=== PATIENT | male | born 1975 | race Caucasian/White ===

== ENCOUNTER 2021-02-07 03:20 | Outpatient (CLI) | payer BC, SELFPAY ==
[2021-02-08 13:59] LABS: COVID-19 RT-PCR UVMMC Result Positive (Negative)
== END 2021-02-07 03:21 | disposition home or self-care (01) ==
PROVIDERS: PCP Family Medicine; Visit Provider Family Medicine
DX: Z20.822 Contact with and (suspected) exposure to COVID-19 (principal)
CPT/HCPCS: U0003

== ENCOUNTER 2021-03-17 06:27 | Day surgery (SDC) | payer BC, SELFPAY ==
--- NOTE | 2021-03-16 20:53 | HPE_ITS ---
Date of service: 03/17/21 Time of Service: 07:00 Assessment and Plan Assessment and plan (1) Screening for colon cancer: Status: Acute Assessment and plan: Plan:Colonscopy w/ MAC The patient will be scheduled by my office. The pt understands that they need to do a bowel prep and the importance of hydration during this. The patient understands there is a theoretical risk of renal failure. For healthy patients we use Gatorade/Miralax Prep. For anyone with renal concerns- GoLytely will be used. Plavix and coumadin will need to be held except in unusual circumstances. Patients in A. Fib do not need to be bridged with Lovenox or on CVA prophylaxis. A baby ASA can be continued but full dose ASA needs to be stopped for 10 days prior to the procedure. MAC is used for the colonoscopy. Colonoscopy does not require antibiotics prophylaxis. Risks: Informed consent is obtained for the procedural (explained in simple layman's terms that the pt and/or family could understand) explaining risks vs benefits and alternatives to the procedure and consequences if we do not do the procedure and need/rational for the procedure. Risks include but are not limited to: bleeding, infection, perforation of colon. This would necessitate emergency surgery to repair the damage w/ possible ostomy; and other associated complications w/ the required surgery. Also complications of anesthesia including aspiration, PA/CVA/. I discussed with the patient would they could expect during the procedure, post procedure and recovery time and risks. The patient understands that they need to have a ride home after the procedure. The patient was given all this information in writing and expressed understanding. (2) History of COVID-19: Status: Acute History of Present Illness Consults Consult date: 03/17/21 Narrative: pt presents for his first colonoscopy screening pre-op. His paternal GPa had CRC. He denies any changes in bowel habits including bloody or black tarry stools, abdominal pain, diarrhea or constipation. 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 He states at times they are bother some and become irritated. Sometimes they pop out. Denies bleeding from the hemorrhoids. He denies constitutional symptoms. Denies use of marijuana or any other recreational or illegal drugs. He denies chest pain, palpitations, dyspnea or dyspnea with exertion. He denies prior history or family history of adverse reactions or complications with anesthesia. The patient denies any history of stroke, PA, seizures, bleeding or clotting disorders. He denies having any implanted metal in his body. His CE had to be delayed b/c he had Covid. His respiratory status is better. He is not having any cough or fevers. no Cp or SOB. He completed his prep and the d/c is clear yellow. No nausea or abdominal pain He notes that he does have problems with hemorrhoids and will occasionally have bleeding and itching. We will also plan on doing a hemorrhoid banding if these are internal hemorrhoids risks include pain bleeding infection and recurrence damage to the sphincters. He also has a lump that he would like us to take a look today Review of Systems All systems reviewed & are unremarkable except as noted in HPI and below PFSH Medical History History of COVID-19 No pertinent past medical history Surgical History Hx of lumpectomy Social History Smoking/Tobacco Use Status: Current-Occasional Tobacco Type: smokeless tobacco Smokeless tobacco user: chewing tobacco Smoking risk assessment performed?: Yes Alcohol Intake: current Alcohol Intake frequency: 0-2 drinks per day Alcohol type: beer Details: Drinks 6 pack/day drinks more than 6 in a night a couple times per wk Substance use type: does not use Current gender identity: male Do you feel safe at home: Yes Do you feel safe in your relationship?: Yes Meds Allergies and Home Medications Allergies Allergy/AdvReac Type Severity Reaction Status Date / Time No Known Allergies Allergy Verified 03/17/21 06:54 Home Medications Medication Instructions Recorded Confirmed Type No Daily Meds 03/12/13 02/02/21 History bisacodyl 5 mg tablet,delayed 5 mg PO ONCE #4 tab 02/02/21 03/17/21 Rx release polyethylene glycol 3350 17 238 g PO ONCE #238 g 02/02/21 03/17/21 Rx gram/dose oral powder Exam Const General: cooperative, healthy appearing, comfortable, no acute distress, well developed and well groomed Nutritional Appearance: average body habitus and well nourished Orientation: alert, awake and oriented x3 [facility] Head: normal to inspection, normocephalic and atraumatic Ears: hearing grossly normal bilaterally and external ears normal General nose exam: external nose normal Face and sinus: normal facial exam and sinuses nontender Mouth: oral mucosae normal, lip normal, tongue normal and moist mucous membranes Teeth and gingiva: dentition normal Eyes General: appearance normal, both eyes and all related structures Conjunctivae: conjunctivae normal Sclera: sclerae normal Pupils: PERRL Neck Neck: normal visual inspection and full ROM Chest Chest: normal inspection of the chest Resp Effort & Inspection: normal respiratory effort, able to speak in complete sentences, no cough, no nasal flaring, not tachypneic and no use of accessory muscles Auscultation: clear to auscultation bilaterally, no rales, no rhonchi and no wheezes Cardio Jugular venous pressure: no JVD Rate: regular rate Rhythm: regular rhythm GI Inspection: normal to inspection, no edema and non-distended Palpation: soft, no masses, nontender and No ascites Auscultation: normal bowel sounds Skin General skin exam: no rashes or lesions noted Trauma: no lacerations or abrasions Neuro General: patient alert, patient oriented x3, oriented, gait normal, moves all extremities, no focal motor deficits and CN's II-XI intact bilaterally Cognition: normal cognition Speech: speech normal Gait: normal gait Motor: muscle tone normal throughout Extrem General: normal to inspection, full ROM and no clubbing, cyanosis or edema Psych Appearance: grossly normal and well kempt Mental Status: mental status grossly normal Speech and Movement: speech and movement normal Affect: normal affect COVID-19 Screening Have you, or household traveled for leisure in last 14 days?: No Had IN PERSON contact w/suspected or confirmed C-19 person: No
[2021-03-17 06:55] VITALS: BP 131/88; PULSE 67; RESP 16; TEMP 36.7; O2SAT 96
--- NOTE | 2021-03-17 07:04 | W.ANESPRE ---
General Info Date of Service Date Performed: 03/17/21 Height: 6 ft 1 in Weight: 100.6 kg Body Mass Index (BMI): 29.2 Surgical Procedure: Operation Date: 03/17/21 07:35 Proposed Procedures Side Surgeon estrellita Jaffe, Meds Allergies and Home Medications Allergies Allergy/AdvReac Type Severity Reaction Status Date / Time No Known Allergies Allergy Verified 03/17/21 06:54 Home Medication Medication Instructions Recorded No Daily Meds 03/12/13 bisacodyl 5 mg tablet,delayed 5 mg PO ONCE #4 tab 02/02/21 release polyethylene glycol 3350 17 238 g PO ONCE #238 g 02/02/21 gram/dose oral powder Current Visit Medications: Current Medications Generic Name Dose Route Start Last Admin Trade Name Freq PRN Reason Stop Dose Admin Ringer's Solution 1,000 mls @ 80 mls/hr 03/17/21 06:00 IV 04/15/21 23:59 INFUSION ELISABET IV Miscellaneous Supplies 1 each 03/17/21 06:00 Iv Access IV 04/15/21 23:59 DIRECTED ELISABET Sodium Chloride 0 ml 03/17/21 06:00 Normal Saline Flush 10 Ml Syr IV 04/15/21 23:59 PRN PRN Sodium Chloride 0 ml 03/17/21 06:00 Normal Saline 10 Ml Vial IJ 04/15/21 23:59 DIRECTED PRN Sterile Water 0 ml 03/17/21 06:00 Water,Injection,Sterile 10 Ml Vial IJ 04/15/21 23:59 DIRECTED PRN PFSH Active Problems Active Problems: Problem Status Onset Code Screening for colon cancer Z12.11 History of COVID-19 Z86.16 Medical History Medical History History of COVID-19 No pertinent past medical history Surgical History Surgical History Hx of lumpectomy Tobacco Smoking/Tobacco Use Status: Current-Occasional Tobacco Type: smokeless tobacco Smokeless tobacco user: chewing tobacco Alcohol Alcohol Intake: current Alcohol intake frequency: 0-2 drinks per day Alcohol type: beer Details: Drinks 6 pack/day drinks more than 6 in a night a couple times per wk Substance Use Substance use type: does not use Vital Signs and Lab Results Vital Signs Most Recent Vital Signs in EMR: Most Recent Vital Signs Temp Pulse Resp BP Pulse Ox 36.7 C 67 16 131/88 96 03/17/21 06:55 03/17/21 06:55 03/17/21 06:55 03/17/21 06:55 03/17/21 06:55 Lab Results Blood Type / Crossmatch: No Data to Display Complete Blood Count: No Data to Display Complete Metabolic Panel: No Data to Display Liver Function Panel: No Data to Display Coagulation Panel: No Data to Display Cardiac Panel: No Data to Display Arterial Blood Gas: No Data to Display Venous Blood Gas: No Data to Display Pancreas Panel: No Data to Display Thyroid Panel: No Data to Display Infectious Disease: Coronavirus (COVID-19)(PCR) Positive (Negative) A* 02/07/21 08:43 02/07/21 Blood Cultures: No Data to Display Toxicology Panel: No Data to Display Anesthesia Assessment and Plan Anesthesia History Personal History: No History of Anesthesia Complications Family History: No Family History of Anesthesia Complications Exercise Tolerance Exercise Tolerance: Metabolic Equivalents>4 Pertinent Negatives Pertinent Negatives: No Symptoms of GERD, No Major Cardiovascular Symptoms or Complaints, No Major Pulmonary Symptoms or Complaints and No History of CVA/TIA Cardiac & Pulmonary Exam Cardiac Exam: Normal S1/S2 Heart Sounds Pulmonary Exam: Clear Bilateral Breath Sounds Airway Exam Known Difficult Airway: No Mallampati Class: 1 Mouth Opening: Normal (> 3cm) Thyromental Distance: Greater than 3 cm Facial Hair: Full Patterson Neck Range of Motion: Full ROM Neck Circumference: Normal Teeth Condition: Normal Dentition ASA Classification ASA Score: ASA 2 ASA Emergency: No NPO Status NPO Status: NPO Clears >2 hours, Solids >8 hours Anesthesia Plan Anesthesia Technique: General Anesthesia Airway Planned: Natural Airway Monitors Used: Standard Monitors
[2021-03-17] MEDS: Lactated Ringers 1,000 ML 80 ML IV (07:05)
[2021-03-17 07:06] VITALS: BMI 29.2
--- NOTE | 2021-03-17 08:01 | BOWEL_PTH ---
PATIENT: Behzad Rizvi LOC: [facility] U#:[id number] AGE/SX: 46/M ROOM: RE03/17/[address]: Angeli Jaffe : 1975 BED: DIS: 03/17/2021 SPEC #: [id number] RECD: 03/17/21 12:43 STATUS: ROSA MARIA REQ #: [id number] AP: 03/17/21 08:[address]: Angeli Jaffe DEPT: Surgical Specimen RECD BY: Kristine Horan ENTERED: 03/17/21 12:44 SP TYPE: Bowel OTHR DR: Yemi Hardin MD Tissues: 1 - BIOPSY BOWEL Procedures: GROSS AND MICRO LEVEL 4 Comments: [id number]
[2021-03-17 08:18] VITALS: BP 148/102; PULSE 73; RESP 18; TEMP 36.4; O2SAT 97
--- NOTE | 2021-03-17 08:18 | W.ANESPOSTOP ---
Postoperative Evaluation Date, Time and Location Date Performed: 03/17/21 Time Performed: 08:18 Patient Location: Day Surgery Unit Vital Signs Most Recent Imported Vital Signs: Most Recent Vital Signs Temp Pulse Resp BP Pulse Ox 36.7 C 67 16 131/88 96 03/17/21 06:55 03/17/21 06:55 03/17/21 06:55 03/17/21 06:55 03/17/21 06:55 Most Recent Manually Entered Vital Signs: Adult Blood Pressure: 140/102 Heart Rate: 69 Respirations: 12 Oxygen Saturation (%): 98 Temperature (C): 36.4 C Pain Score (0-10 Scale): 0 Pain Score Most Recent Pain Score: Most Recent Pain Score Pain Level 0 03/17/21 06:55 Assessment Mental Status: Awake (Alert & Oriented to Patient Baseline) Airway and Respiratory Function: Patent airway with normal (patient baseline) respiratory exam Cardiovascular Function: Hemodynamically Stable Hydration Status: Adequately Hydrated Nausea & Vomiting: No Nausea or Vomiting Pain: Pt. Denies Any Pain Peripheral Nerve Block: Patient did not receive a nerve block Teaching Patient Teaching: Discussed Safe Use of Pain Medication Given Likely or Known MELVIN
[2021-03-17 08:20] VITALS: BP 140/102; PULSE 69; RESP 12; TEMPC 36.4; O2SAT 98
--- NOTE | 2021-03-17 08:21 | PDOC.DSDIS_ITS ---
Discharge Plan Disposition Patient Disposition: HOME Condition: Good Discharge Details Attending Provider: Angeli Jaffe Primary Care Provider: Yemi Hardin Home Meds and New Rx's Prescriptions: Discontinued polyethylene glycol 3350 17 gram/dose powder 238 g PO ONCE Qty: 238 RF: 0 bisacodyl [Dulcolax (bisacodyl)] 5 mg tablet,delayed release (DR/EC) 5 mg PO ONCE Qty: 4 RF: 0 No Action NO DAILY MEDS RF: 0 Discharge Instructions Additional Instructions: Pain Relief From Hemorrhoids Hemorrhoid banding itself is not painful, but it is normal for patients to experience a sense of fullness or pressure after the procedure. Tylenol or Ibuprofen usually alleviates any symptoms. Post-Procedure Do's & Don'ts Do?s: ? Take fiber supplements to avoid constipation ? Squeeze your buttocks muscles 10-15 times every two hours ? Take 10-15 deep breaths every 1-2 hours ? Drink plenty of water ? Engage in moderate exercise ? Take a sitz bath ? soaking in a tub of warm water ? after every bowel movement Don?ts: ? Stay seated for more than 2-3 hours ? Rub or scrub the anus too vigorously ? Try to force a bowel movement ? if you cannot go, stop and try again later ? Insert anything into the anus for two weeks ? unless you have been prescribed anorectal medication ? Avoid alcohol, as it can dehydrate you and lead to constipation Occasionally, you may experience bleeding after the hemorrhoid banding procedure. Do not be concerned if there is a minimal amount of blood. However, if bleeding continues, lie flat with your bottom higher than your head and apply an ice pack to the area. If the bleeding does not stop within a half-hour, call our office or go to the emergency room. Bleeding complications are uncommon and occur <1% of the time. Additional Tips ? To avoid constipation, take two tablespoons of natural wheat bran, natural oat bran, flax, Benefiber or any over the counter fiber supplement with 7-8 glasses of water. *Continue taking daily fiber to avoid constipation and straining to move your malcolm wels. This is what causes hemorrhoids. Activity:: No strenuous activity or lifting over 20 pounds x 24 hours Diet:: Small light meals x24 hours Discharge Orders Discharge Orders: Discharge Order (Routine); Ordered 03/17/21 Ordered By: Angeli Jaffe DS: Diagnosis Discharge Diagnosis (1) Screening for colon cancer: Status: Acute (2) History of COVID-19: Status: Acute (3) Adenomatous colon polyp: Status: Acute (4) Internal hemorrhoids: Status: Acute (5) External hemorrhoid: Status: Acute
--- NOTE | 2021-03-17 08:26 | W.COLOREPORT ---
Date of service: 03/17/21 Time of Service: 08:26 Colonoscopy Report Date of procedure: 03/17/21 Pre-op diagnosis general: + family hx Post-op diagnosis procedure note: other (small polyp. I/E hemorrhoids ) Procedure: polypectomy x2 hemorrhoid banding Anesthesia Type: General:No Airway Estimated blood loss (mL): 0 Pathology: other Complications: None Disposition: same day Prep: Miralax/Dulcolax Retraction Time: 10 mins Procedure Description: After informed consent was obtained the patient was taken to the procedure room and placed in a left decubitous position. Monitors were applied and a time out was done. The patients name, date of , procedure, allergies to medications and metal in their body was reviewed. The patient was then sedated. Once sedated and comfortable a rectal exam was done. External exam shows external hemorrhoids. Internal exam revealed a normal sphincter tone and no palpable masses. The scope was then introduced and retrofelexed. Grade I internal hemorrhoids were identified. The scope was then advanced to the cecum without difficulty. The TI and appendiceal orifice were identified. The prep was good. The scope was then slowly retracted over 10 minutes back into the rectum. There are no diverticula or AVMs. He has a less than 5 mm flat polyp at 30 cm. This is removed in total with a cold forcep. All specimen is retrieved and no bleeding is noted. The scope was removed and the patient was woken up and taken back to Same day surgery in stable condition. The patient tolerated the procedure well and there were no immediate complications. Follow up: The patient should follow up in 5-10 years-path pd, unless they develop changes in bowel habits or other new gastrointestinal complaints.
[2021-03-17 08:45] VITALS: BP 148/90; PULSE 62; RESP 18; TEMP 36.7; O2SAT 98
== END 2021-03-17 09:00 | disposition home or self-care (01) ==
PROVIDERS: PCP Family Medicine; Visit Provider Surgery
PROC: 0DJD8ZZ Inspection of Lower Intestinal Tract, Via Natural or Artificial Opening Endoscopic (ICD-10-PCS; CPT 45378; principal; 2021-03-17 07:30)
DX: Z12.11 Encounter for screening for malignant neoplasm of colon (principal); D12.5 Benign neoplasm of sigmoid colon; Z80.0 Family history of malignant neoplasm of digestive organs; K64.8 Other hemorrhoids; Z86.16 Personal history of COVID-19
CPT/HCPCS: 45380; 88305; J2001

== ENCOUNTER 2021-05-23 09:47 | Outpatient (CLI) | payer BC, SELFPAY ==
[2021-05-23 14:07] LABS: Calculated LDL 174 mg/dL (<100); Cholesterol 243 mg/dL (<200); Glucose 102 mg/dL (74-106); HDL Cholesterol 53 mg/dL (40-60); Triglyceride 80 mg/dL (<150)
== END 2021-05-23 09:48 | disposition home or self-care (01) ==
LOC: LOS 09:47
PROVIDERS: PCP Family Medicine; Referring Provider Family Medicine; Visit Provider Family Medicine
DX: R73.9 Hyperglycemia, unspecified (principal); E78.5 Hyperlipidemia, unspecified
CPT/HCPCS: 36415; 80061; 82947

== ENCOUNTER 2021-07-19 16:24 | Emergency (ER) | payer BC, SELFPAY ==
--- NOTE | 2021-07-19 16:33 | ED.GENADUL_ITS ---
Discharge Plan Disposition Patient Disposition: HOME Condition: Improving Discharge Details Clinical Impression: Anaphylaxis Primary Care Provider: Yemi Hardin ED Provider: Peace Andrea Home Meds and New Rx's Prescriptions: New epinephrine 0.3 mg/0.3 mL auto-injector 0.3 mg IM Q5-15M PRN (Reason: anaphylaxis) Qty: 2 RF: 0 No Action prednisone 20 mg tablet 40 mg PO DAILY Qty: 10 RF: 0 NO DAILY MEDS RF: 0 Discharge Instructions Instructions: Epinephrine (By injection), General Allergic Reaction (ED) Additional Instructions: You appear to have had an anaphylactic reaction to bee sting today. Please try to avoid these. Please take the steroids as prescribed. Your next dose will be due tomorrow. This is available at your pharmacy. You may continue with Benadryl as needed for symptomatic management. You are being sent with an epinephrine pen. If you develop difficulty breathing, swelling of your mouth, vomiting, or have another exposure to bees please take this immediately. If you need to use the EpiPen please return to the emergency department immediately after usage. Please follow-up with primary care in the next 1 to 2 weeks for reevaluation. Referrals: Yemi Hardin. [Primary Care Provider] - Discharge Data Discharge Date/Time-TO BE ENTERED AT DEPARTURE: 07/19/21 20:44 Medical Decision Making <MJ Linder - Last Filed: 07/19/21 23:36> Patient is a 46 year old male, accompanied by , with c/c of bee sting to face. Has not had allergy historically. Patient has swelling of lips, tongue and CP. gave 25mg Benadryl prior to arrival. Patient denies CP prior to bee sting, has not had any exertional symptoms. On exam, patient has significant lip swelling. Moving air, lungs clear. Face red. Patient is moderate distress. Concern for anaphylaxis. Gave IM epi. Will give famotidine, steroids, benadryl. Will obtain ECG and labs for CP eval. ECG reviewed by Dr. Gabriel. Low voltage. NSR, rate 75. No acute ischemic changes. Reevaluated the patient. He appears much improved. Continues to have some mild lower lip swelling where the sting occurred. However, I do not see any continued evidence to suggest edema elsewhere. He reports that he is feeling much improved. Repeat troponin remains <0.05. No no acute ischemic changes ECG. Routine reevaluation of the patient was performed. He reports he is feeling much improved. Feels ready for discharge. Than 4 hours since he received his epinephrine. Patient will be sent home with another EpiPen. We will continue him on prednisone. Advised he may continue with Benadryl as well to help any symptomatic management. Strict return precautions were discussed. Patient prescribed EpiPen for any recurrence of another exposure. All of his questions and concerns were addressed and he is in agreement with this plan. <Donny Gabriel MD - Last Filed: 08/01/21 11:32> Patient seen, examined, and discussed with MJ Andrea. Patient in critical condition on arrival. Epinephrine, Benadryl, Solu-Medrol administered and patient reassessed multiple times and had significant improvement. I agree with treatment plan as documented by MJ Andrea. HPI <MJ Linder - Last Filed: 07/19/21 23:36> General Mode of arrival: ambulatory . Date/Time Provider Initiated Documentation: 07/19/21 16:30 . Limitations to Documentation: no limitations . Information obtained by: patient, family and RN notes reviewed . History of Present Illness 46 year old M presents to the emergency department with the chief complaint of allergic reaction, described as severe, Quality is described as other (swelling, rash), and is localized to the face and chest. Patient reports no radiation. Patient started experiencing this minute(s) and it has been constant. No relieving factors improve symptom(s), Other factors that worsen symptoms (bee sting) . Patient notes chest pain; denies cough, fever/chills, nausea/vomiting, rash and shortness of breath. Patient did receive the following treatments prior to arrival, none Related Data Home Medications Medication Instructions Recorded Confirmed No Daily Meds 03/12/13 07/26/21 epinephrine 0.3 mg IM Q5-15M PRN #2 ea 07/19/21 07/26/21 prednisone 20 mg tablet 40 mg PO DAILY #10 tab 07/26/21 07/26/21 Previous Rx's Medication Instructions Recorded epinephrine 0.3 mg IM Q5-15M PRN #2 ea 07/19/21 prednisone 20 mg tablet 40 mg PO DAILY #10 tab 07/26/21 Allergies Allergy/AdvReac Type Severity Reaction Status Date / Time No Known Allergies Allergy Verified 05/23/21 09:21 Review of Systems <MJ Linder - Last Filed: 07/19/21 23:36> Constitutional Constitutional: Reports as per HPI, Denies chills, Denies fever(s) and Denies headache(s) Eyes Eyes: Reports as per HPI ENT Ears, Nose, Mouth, and Throat: Reports as per HPI and Denies headache(s) Cardiovascular Cardiovascular: Denies chest pain Respiratory Respiratory: Reports as per HPI Gastrointestinal Gastrointestinal: Reports as per HPI Integumentary/Breasts Skin/Breast: Reports as per HPI Neurologic Neurologic: Denies headache(s) PFSH <MJ Linder - Last Filed: 07/19/21 23:36> Medical History History of COVID-19 No pertinent past medical history Surgical History History of colonoscopy (~03/17/21) Hx of lumpectomy Social History Smoking/Tobacco Use Status: Current-Occasional Tobacco Type: smokeless tobacco Smokeless tobacco user: chewing tobacco Smoking risk assessment performed?: Yes Alcohol Intake: current Alcohol Intake frequency: 0-2 drinks per day Alcohol type: beer Details: Drinks 6 pack/day drinks more than 6 in a night a couple times per wk Substance use type: does not use Current gender identity: male Do you feel safe at home: Yes Do you feel safe in your relationship?: Yes Exam <MJ Linder - Last Filed: 07/19/21 23:36> Const General: cooperative, well developed, in distress moderate and ill appearing acutely Nutritional Appearance: average body habitus and well nourished Orientation: alert, awake and oriented x3 HENMT Head: normal to inspection Ears: hearing grossly normal bilaterally Face and sinus: erythema Mouth: oral mucosae normal, lip abnormal (swelling, maximal on lower lip), tongue normal, moist mucous membranes, no drooling and no muffled voice Teeth and gingiva: dentition normal Throat: posterior oropharynx normal Eyes Periorbital: periorbital findings abnormal (swelling to areas around eyes) Neck Neck: normal visual inspection, full ROM, no lymphadenopathy, no meningeal signs and trachea midline Resp Effort & Inspection: normal respiratory effort, able to speak in complete sentences, no respiratory distress, no stridor and no use of accessory muscles Auscultation: clear to auscultation bilaterally Cardio Rate: regular rate Rhythm: regular rhythm Heart Sounds: S1 normal and S2 normal GI Palpation: not rigid Skin General skin exam: erythema (red rash on face ) Neuro General: patient alert and patient awake Cognition: normal cognition Speech: speech normal Gait: normal gait Psych Appearance: grossly normal and well kempt Mental Status: mental status grossly normal Speech and Movement: speech and movement normal Critical Care Time <MJ Linder - Last Filed: 07/19/21 23:36> Critical Care Time Critical Care Time: Yes Total Critical Care Time: 40 Attestation: I spent 40 minutes of critical care time with this patient managing his anaphylaxis
[2021-07-19] MEDS: methylPREDNISolone SUCC 125 MG VIAL IVP (16:40)
[2021-07-19] MEDS: FAMOTIDINE 20 MG/50 ML BAG 200 MG IVPB (16:40)
[2021-07-19] MEDS: EPINEPHrine 0.3 MG KIT (16:40)
[2021-07-19] MEDS: diphenhydrAMINE 50 MG/ML VIAL 25 MG IVP (16:40)
[2021-07-19] MEDS: Normal Saline 1,000 ML 1000 ML IV (16:41)
--- NOTE | 2021-07-19 16:45 | RT.EKG_ITS ---
APPROVED REPORT Exam: Resting ECG Reason for Exam: chest Patient Location: E HR:75 bpm ECG Measurements Heart Rate 75 AXIS WV 169 P 38 QRSd 82 QRS 59 QT 366 T 53 QTc 409 Conclusion Sinus rhythm...normal P axis, V-rate 60- 99 Low voltage, extremity leads...all extremity leads <0.5mV
[2021-07-19 16:56] LABS: Abs Immature Grans 0.02 10^3/uL (0.0-0.06); Absolute Basophil Count 0.04 10^3/uL (0.0-0.2); Absolute Eosinophil Count 0.09 10^3/uL (0.0-0.7); Absolute Lymphocyte Count 1.79 10^3/uL (1.2-3.4); Absolute Monocyte Count 0.61 10^3/uL (0.1-0.8); Absolute Neutrophil Count 4.26 10^3/uL (1.2-6.7); Basophils % 0.6; Eosinophils % 1.3; HCT 49.1 % (40.0-50.0); Immature Grans % 0.3; Lymphocytes % 26.3; MCH 31.1 pg (27.0-33.0); MCHC 32.6 % (32.0-36.0); MCV 95.3 fL (80-95); MPV 10.2 fL (8.0-11.0); Neutrophils % 62.5; Nucleated RBC 0 %; Platelet Count 342 10^3/uL (130-400); RBC 5.15 10^6/uL (4.36-5.78); RDW 12.1 % (11.8-14.1); RDW-SD 42.5 fL; WBC 6.81 10^3/uL (4.4-10.8)
[2021-07-19] MEDS: Loratidine 10 MG TAB PO (17:03)
[2021-07-19 17:11] LABS: ALT 35 U/L (16-63); AST 18 U/L (15-37); Albumin 3.9 g/dL (3.4-5.0); Alkaline Phosphatase 65 U/L (46-116); Anion Gap 8.2 mmol/L (3-11); BUN 21 mg/dL (7-18); Bilirubin, Total 0.4 mg/dL (0.2-1.0); CO2 29.8 mmol/L (21.0-32.0); CREATININE 1.2 mg/dL (0.70-1.30); Chloride 103 mmol/L (98-107); Glucose 121 mg/dL (74-106); Potassium 3.7 mmol/L (3.5-5.1); Sodium 141 mmol/L (136-145); Total Protein 7.9 g/dL (6.4-8.2)
[2021-07-19 17:12] LABS: Troponin I < 0.05 ng/mL (<0.06)
--- NOTE | 2021-07-19 19:15 | RT.EKG_ITS ---
APPROVED REPORT Exam: Resting ECG Reason for Exam: Patient Location: E HR:69 bpm ECG Measurements Heart Rate 69 AXIS [place] 166 P 30 QRSd 81 QRS 48 QT 360 T 39 QTc 386 Conclusion Sinus rhythm...normal P axis, V-rate 60- 99
[2021-07-19 19:51] LABS: Troponin I < 0.05 ng/mL (<0.06)
[2021-07-19] MEDS: EPINEPHrine 0.3 MG KIT IM (20:43)
[2021-07-19 20:44] VITALS: BP 136/88; PULSE 89; RESP 16; O2SAT 97
== END 2021-07-19 20:44 | disposition home or self-care (01) ==
PROVIDERS: Emergency Provider Physician Assistant; PCP Family Medicine
DX: T63.441A Toxic effect of venom of bees, accidental (unintentional), initial encounter (principal); T78.2XXA Anaphylactic shock, unspecified, initial encounter; T78.3XXA Angioneurotic edema, initial encounter; R07.9 Chest pain, unspecified
CPT/HCPCS: 36415; 80053; 93005; 96361; 96365; 96372; 96375; 99291; 84484; 85025; 93010; J0171; J1200; J2930

== ENCOUNTER 2022-05-29 09:09 | Outpatient (CLI) | payer BC, SELFPAY ==
[2022-05-29 12:46] LABS: Calculated LDL 153 mg/dL (<100); Cholesterol 216 mg/dL (<200); Glucose 105 mg/dL (74-106); HDL Cholesterol 47 mg/dL (40-60); Triglyceride 80 mg/dL (<150)
== END 2022-05-29 09:10 | disposition home or self-care (01) ==
LOC: LOS 09:09
PROVIDERS: PCP Family Medicine; Referring Provider Family Medicine; Visit Provider Family Medicine
DX: E78.5 Hyperlipidemia, unspecified (principal); R73.9 Hyperglycemia, unspecified
CPT/HCPCS: 36415; 80061; 82947

== ENCOUNTER 2025-03-23 10:47 | Outpatient (CLI) | payer BC, SELFPAY ==
[2025-03-23 13:05] LABS: Calculated LDL 122 mg/dL (<100); Cholesterol 204 mg/dL (<200); HDL Cholesterol 75 mg/dL (>or=40); Triglyceride 38 mg/dL (<150)
[2025-03-24 10:31] LABS: PSA, Screening 0.8 ng/mL (<=3.5)
[2025-03-24 12:19] LABS: HBs Antibody, Quant <3.1 mIU/mL (See Note); Hep B Surface Ab Negative (See Note); Hepatitis B Core Antibody Negative (Negative); Hepatitis B Surface Antigen Negative (Negative)
[2025-03-24 12:36] LABS: Hepatitis C Ab w Rflx HCV PCR Negative (Negative)
[2025-03-24 13:40] LABS: HIV-1/2 Ag & Ab Screen Negative (Negative)
== END 2025-03-23 10:48 | disposition home or self-care (01) ==
LOC: LOS 10:47
PROVIDERS: PCP Family Medicine; Referring Provider Family Medicine; Visit Provider Family Medicine
DX: E78.5 Hyperlipidemia, unspecified (principal); Z12.5 Encounter for screening for malignant neoplasm of prostate; Z11.59 Encounter for screening for other viral diseases; Z00.00 Encounter for general adult medical examination without abnormal findings
CPT/HCPCS: 36415; 80061; 84153; 86704; 86706; 86803; 87340; 87389